=== PATIENT | male | born 1990 | race Hispanic/Latino ===

== ENCOUNTER 2021-09-29 15:25 | Emergency (ER) | payer BC, OTHER ==
[~2021-09-29] VITALS: Ht 243.8 cm; Wt 104.3 kg
[2021-09-29] MEDS ORDERED: ACETAMINOPHEN500 MG PO (15:53)
[2021-09-29] MEDS ORDERED: IBUPROFEN IB200 MG PO (15:53)
[2021-09-29] MEDS ORDERED: IBUPROFEN 600 MG TAB ONE (15:58)
[2021-09-29] MEDS ORDERED: IBUPROFEN 600 MG TAB PO ONE (16:00)
== END 2021-09-29 16:33 | disposition home or self-care (01) ==
LOC: FSED 15:42
DX: S63.501A Unspecified sprain of right wrist, initial encounter (principal); X50.9XXA Other and unspecified overexertion or strenuous movements or postures, initial encounter; Y92.89 Other specified places as the place of occurrence of the external cause; E11.9 Type 2 diabetes mellitus without complications; F17.210 Nicotine dependence, cigarettes, uncomplicated
CPT/HCPCS: 99283

== ENCOUNTER 2024-04-19 10:39 | Emergency (ER) | payer BC, OTHER ==
[~2024-04-19] VITALS: Ht 172.7 cm; Wt 104.3 kg
[~2024-04-19 10:39] MED LIST: ACETAMINOPHEN500 MG PO; IBUPROFEN IB200 MG PO; IBUPROFEN200 MG PO; METFORMIN HCL500 M2 PO; TYLENOL325 MG PO
[2024-04-19 10:47] VITALS: PULSE 95; RESP 18; TEMP 98.1; O2SAT 96
== END 2024-04-19 11:25 | disposition home or self-care (01) ==
LOC: FSED 10:47
DX: S93.692A Other sprain of left foot, initial encounter (principal); X50.1XXA Overexertion from prolonged static or awkward postures, initial encounter; Y92.89 Other specified places as the place of occurrence of the external cause; E11.9 Type 2 diabetes mellitus without complications
CPT/HCPCS: 99283